=== PATIENT | female | born 1975 | race Caucasian/White ===

== ENCOUNTER → 2024-07-17 | Outpatient (CLI) | payer BC ==
[2024-07-17 14:13] LABS: BASO % 0.8 % (0.0-1.0); EOS # 0.1 10*3/uL (0.0-0.4); HEMATOCRIT 37.4 % (37.0-47.0); MEAN CORPUSCULAR HGB 29.9 pg (27.0-31.0); MEAN PLATELET VOLUME 10.1 fl (9.6-12.3); MONO # 0.5 10*3/uL (0.1-1.0); MONO % 10.7 % (3.0-9.0); NEUT # 3.5 10*3/uL (2.3-7.9); NEUT % 69.7 % (47.0-73.0); PLATELET COUNT AUTOMATED 348 10*3/uL (130-400); RED BLOOD COUNT 4.25 10*6/uL (4.10-5.10); RED CELL DISTRI WIDTH 12.5 % (0-14.5)
[2024-07-17 15:39] LABS: TOTAL PROTEIN 7.3 gm/dL (6.0-8.0)
== END | disposition home or self-care (01) ==
LOC: LAB 13:56
PROVIDERS: ATTEND Physician Assistant
DX: Z12.83 Encounter for screening for malignant neoplasm of skin (principal); G35 Multiple sclerosis; L70.0 Acne vulgaris; L81.4 Other melanin hyperpigmentation; D22.9 Melanocytic nevi, unspecified; L82.1 Other seborrheic keratosis; L57.8 Other skin changes due to chronic exposure to nonionizing radiation; Z87.2 Personal history of diseases of the skin and subcutaneous tissue